=== PATIENT | female | born 1990 | race Caucasian/White ===

== ENCOUNTER 2016-05-17 19:44 | Emergency (ER) | payer OTHER ==
[~2016-05-17 19:44] MED LIST: ACETAMINOPHEN PO; ALBUTEROL17 GM INH; BENADRYL PO; BENTYL20 M1; CAVAN-FOLATE D1 EACH; ELIMITE60 GM TOP; FLEXERIL10 MG PO; IBUPROFEN PO; LORTAB 5-325 M1 EACH PO; NO MEDICATIONS; OMNICEF300 M1 PO; PREDNISONE PO; PROMETHAZINE HC25 MG PO; PROMETHAZINE12.5 MG; ROBAXIN500 MG PO; ROBITUSSIN NIG118 ML PO; VISTARIL PO; VOLTAREN75 MG PO; ZANTAC PO; ZOFRAN ODT4 MG
[2016-05-17 20:07] LABS: BASOPHIL% 0.4 % (0-2.5); EOSINOPHIL# 0.1 X10e3 (0-0.7); EOSINOPHIL% 2.3 % (0.0-7.0); HEMATOCRIT 42.2 % (35.0-45.0); HEMOGLOBIN 14.4 gm/dL (12.0-16.0); LYMPHOCYTE# 2.2 X10e3 (1.0-3.5); LYMPHOCYTE% 57.6 % (17.0-45.0); MEAN CELL VOLUME 94.3 FL (83-96); MEAN CORPUSCULAR HEMOGLOBIN 32.3 PG (28-34); MEAN CORPUSCULAR HGB CONC 34.2 g/dL (30-36); MEAN PLATELET VOLUME 8.5 FL (6.5-11.5); MONOCYTE# 0.3 X10e3 (0-1.0); MONOCYTE% 9.1 % (3.0-12.0); NEUTROPHIL# 1.2 X10e3 (1.5-7.1); NEUTROPHIL% 30.6 % (40-75); PLATELET COUNT 144 X10e3 (140-420); RED BLOOD COUNT 4.48 X10e (3.90-5.30); RED CELL DISTRIBUTION WIDTH 12.3 % (11.0-15.5); WHITE BLOOD COUNT 3.8 X10e3 (4.0-10.5)
[2016-05-17 20:08] LABS: DIFF IND NO
[2016-05-17 20:16] LABS: URINE SOURCE CLEAN CATCH
[2016-05-17 20:18] LABS: MICRO INDICATED? YES; URINE APPEARANCE CLEAR; URINE BILIRUBIN NEG (NEG); URINE BLOOD 3+ (NEG); URINE COLOR YELLOW; URINE GLUCOSE NEG (NORM); URINE KETONE NEG (NEG); URINE LEUKOCYTE ESTERASE NEG (NEG); URINE NITRATE NEG (NEG); URINE PH 5.5 (5-8); URINE PROTEIN NEG (NEG); URINE SPECIFIC GRAVITY 1.025 (1.003-1.035); URINE UROBILINOGEN 0.2 MG/DL (NORM)
[2016-05-17 20:20] LABS: URINE WBC 0-2 /[HPF] (0-5)
[2016-05-17 20:21] LABS: ALBUMIN SERUM 4.4 g/dL (3.5-5.0); BILIRUBIN, DIRECT 0.1 mg/dL (0.0-0.2); BILIRUBIN,INDIRECT 0.2 mg/dL (0.0-0.9); BILIRUBIN,TOTAL 0.3 mg/dL (0.2-2.0); CALCIUM SERUM 8.3 mg/dL (8.4-10.2); CREATININE SERUM 0.6 mg/dL (0.6-1.4); CULTURE INDICATED? NO; GLOM FILT RATE Estimated 127.6 mL/min (>60); POTASSIUM 3.3 mmol/L (3.5-5.1); PROTEIN TOTAL SERUM 7.5 g/dL (6.0-8.3); URINE BACTERIA NEG (NEG); URINE MUCUS PRESENT; URINE SQUAMOUS EPITHELIAL CELL OCCAS /[HPF]
== END 2016-05-17 21:50 | disposition home or self-care (01) ==
LOC: SED 19:44
PROVIDERS: Emergency Medicine
DX: K29.00 Acute gastritis without bleeding (principal); F31.9 Bipolar disorder, unspecified; F17.210 Nicotine dependence, cigarettes, uncomplicated; Z88.0 Allergy status to penicillin; Z88.5 Allergy status to narcotic agent
CPT/HCPCS: 36415; 80048; 80076; 81003; 82150; 83690; 84703; 85025; 96361; 96374; 96375; 99284; C9113; J2405; J2550

== ENCOUNTER 2016-06-13 23:58 | Emergency (ER) | payer OTHER ==
--- NOTE | ~2016-06-13 | CT2 ---
[facility]. [facility] A Service [facility] RADIOLOGY TEXT RESULTS PATIENT: ZOILA DOMINGUEZ LOCATION: SED : [birth year] UNIT #: [id number] AGE: [address]: FAVIAN GARCIA SEX: F ORDER DR: [id number] [address] [address] [id number] E MR#: [id number] Acc #: [id number] NAME: ZOILA DOMINGUEZ : 1990 SEX: F STUDY DATE/TIME: 06/14/2016 1:02 UNIT: SED ROOM: STUDY DESCRIPTION: CT Abd and Pelv W Cont Attending Physician: Favian Garcia Ordering Physician: Favian Garcia (Res) Primary Care Physician: Natividad Hare A.P.R.N. MEDICAL IMAGING REPORT This report is preliminary unless electronic signature is present. EXAM CT abdomen and pelvis with contrast DATE 06/14/2016 HISTORY 26-year-old female with right lower quadrant pain tonight. COMPARISON None. PROCEDURE 5 mm axial images from the lung bases through the lesser trochanters after intravenous contrast administration. Enteric contrast was not administered. Sagittal and coronal reformatted images were obtained. This CT exam was performed with one or more of the following radiation dose reduction techniques: Automatic exposure control, adjustment of mA and/or kV according to patient size, and iterative reconstruction. FINDINGS ABDOMEN FINDINGS: The appendix is normal. Limited evaluation of bowel due to lack of enteric contrast but no focal bowel inflammation is seen. The lung bases are clear. Heart size is within normal limits. The liver, gallbladder, spleen, pancreas, adrenals and kidneys are within normal limits. No free air, free fluid or pathologic adenopathy is identified. PELVIS FINDINGS: 2 left ovarian cysts are present, the dominant measuring up to 1.8 cm. Small amount of fluid is seen surrounding the right ovary with a right ovarian dominant follicle or cyst measuring only 7 mm. Urinary bladder, uterus and rectum are normal. [facility] A Service [facility] RADIOLOGY TEXT RESULTS PATIENT: ZOILA DOMINGUEZ LOCATION: SED : [birth year] UNIT #: [id number] AGE: [address]: FAVIAN GARCIA SEX: F ORDER DR: Osseous structures are within normal limits. IMPRESSION 1. 7 mm right ovarian dominant follicle or cyst is noted and there is some fluid surrounding the right ovary. The findings could represent changes of recent ovarian cyst rupture. 2. There are 2 left ovarian cysts, dominant measuring 1.9 cm. 3. The appendix is normal. 4. The remainder of the examination is within normal limits. Dictated by... Kia Schroeder M.D. THIS IS AN ELECTRONICALLY VERIFIED REPORT Kia Schroeder M.D. at 06/14/2016 9:[address] [facility]/jayro TD: 06/14/2016 02:38 JOB #: [id number] MEDICAL IMAGING REPORT Page 1 of 1
[2016-06-14 00:19] LABS: URINE SOURCE CLEAN CATCH
[2016-06-14 00:21] LABS: URINE APPEARANCE CLEAR; URINE BILIRUBIN NEG (NEG); URINE BLOOD TRACE-INTACT (NEG); URINE COLOR YELLOW; URINE GLUCOSE NEG (NORM); URINE KETONE NEG (NEG); URINE LEUKOCYTE ESTERASE TRACE (NEG); URINE NITRATE NEG (NEG); URINE PH 6.5 (5-8); URINE PROTEIN NEG (NEG); URINE SPECIFIC GRAVITY 1.025 (1.003-1.035); URINE UROBILINOGEN 0.2 MG/DL (NORM)
[2016-06-14 00:24] LABS: MICRO INDICATED? YES
[2016-06-14 00:28] LABS: CULTURE INDICATED? YES; URINE AMORPHOUS SEDIMENT AMORP URATES; URINE BACTERIA NEG (NEG); URINE MUCUS PRESENT; URINE SQUAMOUS EPITHELIAL CELL FEW /[HPF]; URINE WBC 25-50 /[HPF] (0-5)
[2016-06-14 00:45] LABS: BASOPHIL% 0.3 % (0-2.5); EOSINOPHIL# 0.1 X10e3 (0-0.7); EOSINOPHIL% 1.7 % (0.0-7.0); HEMATOCRIT 41.4 % (35.0-45.0); LYMPHOCYTE# 2.4 X10e3 (1.0-3.5); LYMPHOCYTE% 36.9 % (17.0-45.0); MEAN CELL VOLUME 95.2 FL (83-96); MEAN CORPUSCULAR HEMOGLOBIN 32.2 PG (28-34); MEAN CORPUSCULAR HGB CONC 33.8 g/dL (30-36); MEAN PLATELET VOLUME 8.5 FL (6.5-11.5); MONOCYTE# 0.5 X10e3 (0-1.0); MONOCYTE% 7.5 % (3.0-12.0); NEUTROPHIL# 3.5 X10e3 (1.5-7.1); NEUTROPHIL% 53.6 % (40-75); PLATELET COUNT 158 X10e3 (140-420); RED BLOOD COUNT 4.34 X10e (3.90-5.30); RED CELL DISTRIBUTION WIDTH 12.5 % (11.0-15.5); WHITE BLOOD COUNT 6.6 X10e3 (4.0-10.5)
[2016-06-14 00:50] LABS: DIFF IND NO
[2016-06-14 00:56] LABS: ALBUMIN SERUM 4.3 g/dL (3.5-5.0); BILIRUBIN, DIRECT 0.1 mg/dL (0.0-0.2); BILIRUBIN,INDIRECT 0.3 mg/dL (0.0-0.9); BILIRUBIN,TOTAL 0.4 mg/dL (0.2-2.0); BUN/CREATININE RATIO 21.66; CALCIUM SERUM 8.7 mg/dL (8.4-10.2); CREATININE SERUM 0.6 mg/dL (0.6-1.4); GLOM FILT RATE Estimated 127.6 mL/min (>60); POTASSIUM 3.6 mmol/L (3.5-5.1); PROTEIN TOTAL SERUM 7.4 g/dL (6.0-8.3)
[2016-06-16 08:18] LABS: CHLAMYDIA TRACH Not Detected (Not Detected); N GONOR Not Detected (Not Detected)
== END 2016-06-14 01:47 | disposition home or self-care (01) ==
LOC: SED 23:58
PROVIDERS: Nurse Practitioner
DX: N83.02 Follicular cyst of left ovary (principal); N83.01 Follicular cyst of right ovary; N73.9 Female pelvic inflammatory disease, unspecified; J45.909 Unspecified asthma, uncomplicated; F41.0 Panic disorder [episodic paroxysmal anxiety]; N80.9 Endometriosis, unspecified; F17.210 Nicotine dependence, cigarettes, uncomplicated; Z88.6 Allergy status to analgesic agent; Z90.89 Acquired absence of other organs; Z88.5 Allergy status to narcotic agent
CPT/HCPCS: 36415; 74177; 80048; 80076; 81003; 82150; 83690; 84703; 85025; 87086; 87210; 87491; 87591; 87808; 87905; 96374; 96375; 99284; J0696; J2405; Q9967

== ENCOUNTER 2016-07-11 10:45 | Emergency (ER) | payer OTHER ==
[2016-07-11 11:32] LABS: URINE SOURCE CLEAN CATCH
[2016-07-11 11:40] LABS: URINE APPEARANCE CLEAR; URINE BILIRUBIN NEG (NEG); URINE BLOOD 3+ (NEG); URINE COLOR YELLOW; URINE GLUCOSE NEG (NEG); URINE KETONE NEG (NEG); URINE LEUKOCYTE ESTERASE NEG (NEG); URINE NITRATE NEG (NEG); URINE PROTEIN NEG (NEG); URINE SPECIFIC GRAVITY 1.011 (1.003-1.035); URINE UROBILINOGEN 0.2 MG/DL (NEG)
[2016-07-11 11:43] LABS: CULTURE INDICATED? NO; URINE BACTERIA AUWI NEG (NEGATIVE); URINE SQUAMOUS EPITHELIAL CELL OCC /[HPF]
== END 2016-07-11 12:15 | disposition home or self-care (01) ==
LOC: CFTX 10:45 → CED 10:45 → CFTX 11:17
PROVIDERS: Nurse Practitioner
DX: R11.2 Nausea with vomiting, unspecified (principal); K21.9 Gastro-esophageal reflux disease without esophagitis; F17.210 Nicotine dependence, cigarettes, uncomplicated; Z88.0 Allergy status to penicillin; Z88.5 Allergy status to narcotic agent
CPT/HCPCS: 81003; 84703; 99283

== ENCOUNTER 2016-08-14 08:44 | Emergency (ER) | payer OTHER ==
[2016-08-15] MEDS ORDERED: BIRTH CONTROL PILLS (07:39)
== END 2016-08-14 11:30 | disposition left against medical advice (07) ==
LOC: CED 08:44
DX: Z53.21 Procedure and treatment not carried out due to patient leaving prior to being seen by health care provider (principal)

== ENCOUNTER 2016-08-15 07:24 | Emergency (ER) | payer OTHER ==
[2016-08-15] MEDS ORDERED: BIRTH CONTROL PILLS (07:39)
[2016-08-15 08:05] LABS: URINE SOURCE CLEAN CATCH
[2016-08-15 08:06] LABS: BASOPHIL% 0.3 % (0-2.5); HEMATOCRIT 43.3 % (35.0-45.0); LYMPHOCYTE# 0.8 X10e3 (1.0-3.5); LYMPHOCYTE% 12.6 % (17.0-45.0); MEAN CELL VOLUME 94.8 FL (83-96); MEAN CORPUSCULAR HEMOGLOBIN 32.8 PG (28-34); MEAN CORPUSCULAR HGB CONC 34.6 g/dL (30-36); MEAN PLATELET VOLUME 7.9 FL (6.5-11.5); MONOCYTE# 0.6 X10e3 (0-1.0); MONOCYTE% 9.2 % (3.0-12.0); NEUTROPHIL# 5.2 X10e3 (1.5-7.1); NEUTROPHIL% 77.9 % (40-75); PLATELET COUNT 126 X10e3 (140-420); RED BLOOD COUNT 4.56 X10e (3.90-5.30); RED CELL DISTRIBUTION WIDTH 12.1 % (11.0-15.5); WHITE BLOOD COUNT 6.7 X10e3 (4.0-10.5)
[2016-08-15 08:07] LABS: URINE APPEARANCE CLEAR; URINE BILIRUBIN NEG (NEG); URINE BLOOD 2+ (NEG); URINE COLOR YELLOW; URINE GLUCOSE NEG (NORM); URINE KETONE 1+ (NEG); URINE LEUKOCYTE ESTERASE 1+ (NEG); URINE NITRATE NEG (NEG); URINE PH 7.5 (5-8); URINE PROTEIN 1+ (NEG)
[2016-08-15 08:26] LABS: DIFF IND NO
[2016-08-15 08:28] LABS: MICRO INDICATED? YES
[2016-08-15 08:36] LABS: CULTURE INDICATED? YES; URINE BACTERIA 1+ (NEG); URINE MUCUS PRESENT; URINE SQUAMOUS EPITHELIAL CELL FEW /[HPF]; URINE WBC 25-50 /[HPF] (0-5)
[2016-08-15 08:46] LABS: ALBUMIN SERUM 4.2 g/dL (3.5-5.0); BILIRUBIN,TOTAL 0.7 mg/dL (0.2-2.0); BUN/CREATININE RATIO 15.71; CALCIUM SERUM 8.3 mg/dL (8.4-10.2); CREATININE SERUM 0.7 mg/dL (0.6-1.4); GLOM FILT RATE Estimated 121.3 mL/min (>60); POTASSIUM 3.2 mmol/L (3.5-5.1)
== END 2016-08-15 11:26 | disposition home or self-care (01) ==
LOC: SED 07:24
PROVIDERS: Emergency Medicine
DX: N30.00 Acute cystitis without hematuria (principal); J02.9 Acute pharyngitis, unspecified; R19.7 Diarrhea, unspecified; R11.2 Nausea with vomiting, unspecified; F17.210 Nicotine dependence, cigarettes, uncomplicated; Z88.0 Allergy status to penicillin
CPT/HCPCS: 36415; 80053; 81003; 84703; 85025; 87086; 87651; 96360; 99284

== ENCOUNTER 2016-09-04 20:05 | Emergency (ER) | payer OTHER ==
[~2016-09-04] VITALS: Ht 170.2 cm; Wt 47.2 kg
--- NOTE | ~2016-09-04 | CT2 ---
[facility] A Service of [facility] & [facility] RADIOLOGY TEXT RESULTS PATIENT: ZOILA DOMINGUEZ LOCATION: [facility] : [birth year] UNIT #: [id number] AGE: [address]: Raymundo Baum DO SEX: F ORDER DR: [id number] [facility] [address] [place], [place] [address] [id number] E MR#: [id number] Acc #: [id number] NAME: ZOILA DOMINGUEZ : 1990 SEX: F STUDY DATE/TIME: 09/05/2016 00:42 UNIT: [facility] ROOM: STUDY DESCRIPTION: CT Abd and Pelv W Cont Attending Physician: Raymundo Baum D.O. Ordering Physician: Raymundo Baum D.O. Primary Care Physician: Natividad Hare A.P.R.N. MEDICAL IMAGING REPORT This report is preliminary unless electronic signature is present EXAM Abdomen and pelvis CT 09/05/2016 00:42 INDICATION Right-side [id number] abdominal pain with cramping for 2 days. Nausea and vomiting as well. TECHNIQUE Axial images were obtained through the abdomen and pelvis following IV contrast administration. Multiplanar reformats were obtained. Comparison made with 06/14/2016. This CT examination was performed with one or more of the following radiation dose reduction techniques: automatic exposure control, adjustment of mA and/or kV according to patient size, and iterative reconstruction. FINDINGS ABDOMEN: Lung bases are clear. The gallbladder is normal. There is no biliary obstruction. Solid abdominal organs are normal. No free fluid or adenopathy. Unopacified GI tract is normal. PELVIS: Urinary bladder is normal. The appendix is normal. Remainder of the unopacified GI tract is normal as well. There are 2 left ovarian cysts, 1 measuring 2 cm and the other measuring 3.2 cm. These are larger than on the prior study. Solid pelvic organs are otherwise unremarkable. IMPRESSION 1. Normal unopacified GI tract, including the appendix. 2. Two left ovarian cysts, larger than on the CT of 06/14/2016. 3. Remainder of the abdomen and pelvis CT is normal. Dictated by... [facility]. [facility] A Service of [facility] & [facility] RADIOLOGY TEXT RESULTS PATIENT: ZOILA DOMINGUEZ LOCATION: [facility] : [birth year] UNIT #: [id number] AGE: [address]: Raymundo Baum DO SEX: F ORDER DR: Niles Yuen Jr., M.D. THIS IS AN ELECTRONICALLY VERIFIED REPORT Niles Yuen Jr., M.D. at 09/05/2016 9:10 PM [facility]/yaneth TD: 09/05/2016 10:48 JOB #: [id number] MEDICAL IMAGING REPORT Page 1 of 1 COPY
[~2016-09-04 20:05] MED LIST changes: +BIRTH CONTROL PILLS
[2016-09-04 22:45] LABS: URINE SOURCE CLEAN CATCH
[2016-09-04 22:55] LABS: BASOPHIL% 0.3 % (0-2.5); EOSINOPHIL# 0.1 X10e3 (0-0.7); EOSINOPHIL% 0.7 % (0.0-7.0); HEMOGLOBIN 14.8 gm/dL (12.0-16.0); LYMPHOCYTE# 2.1 X10e3 (1.0-3.5); LYMPHOCYTE% 28.3 % (17.0-45.0); MEAN CELL VOLUME 95.8 FL (83-96); MEAN CORPUSCULAR HEMOGLOBIN 31.6 PG (28-34); MEAN PLATELET VOLUME 9.2 FL (6.5-11.5); MONOCYTE# 0.7 X10e3 (0-1.0); MONOCYTE% 9.2 % (3.0-12.0); NEUTROPHIL# 4.5 X10e3 (1.5-7.1); NEUTROPHIL% 61.5 % (40-75); PLATELET COUNT 177 X10e3 (140-420); RED CELL DISTRIBUTION WIDTH 12.5 % (11.0-15.5); WHITE BLOOD COUNT 7.3 X10e3 (4.0-10.5)
[2016-09-04 23:00] LABS: DIFF IND NO
[2016-09-04 23:01] LABS: POC - CKMB <1.0 ng/mL (0.0-7.9); POC - TROPONIN <0.05 ng/mL (<=0.05)
[2016-09-04 23:13] LABS: ALBUMIN SERUM 4.8 g/dL (3.5-5.0); BILIRUBIN, DIRECT 0.1 mg/dL (0.0-0.2); BILIRUBIN,INDIRECT 0.9 mg/dL (0.0-0.9); BUN/CREATININE RATIO 23.33; CREATININE SERUM 0.6 mg/dL (0.6-1.4); GLOM FILT RATE Estimated 127.6 mL/min (>60); POTASSIUM 3.6 mmol/L (3.5-5.1); PROTEIN TOTAL SERUM 8.3 g/dL (6.0-8.3)
[2016-09-04 23:15] LABS: URINE APPEARANCE CLEAR; URINE BILIRUBIN NEG (NEG); URINE BLOOD NEG (NEG); URINE COLOR YELLOW; URINE GLUCOSE NORM (NEG); URINE KETONE NEG (NEG); URINE LEUKOCYTE ESTERASE 1+ (NEG); URINE NITRATE NEG (NEG); URINE PH 6.5 (5-8); URINE PROTEIN NEG (NEG); URINE UROBILINOGEN NORM (NEG)
[2016-09-04 23:16] LABS: CULTURE INDICATED? NO; URBCS1 AUWI 0-2 /[HPF] (0-2); URINE CRYSTALS CALCIUM OXALATE /[HPF]; UWBCS1 AUWI 0-2 (0-5)
== END 2016-09-05 01:30 | disposition home or self-care (01) ==
LOC: CED 20:05
PROVIDERS: Emergency Medicine
DX: N83.202 Unspecified ovarian cyst, left side (principal); R11.2 Nausea with vomiting, unspecified; F41.0 Panic disorder [episodic paroxysmal anxiety]; E03.9 Hypothyroidism, unspecified; F17.200 Nicotine dependence, unspecified, uncomplicated
CPT/HCPCS: 36415; 74177; 80048; 80076; 81003; 82553; 83690; 84484; 85025; 85379; 96361; 96374; 96375; 99284; J0500; J2405; Q9967

== ENCOUNTER 2016-09-12 11:28 | Emergency (ER) | payer OTHER ==
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
== END 2016-09-12 14:16 | disposition home or self-care (01) ==
LOC: SED 11:28
DX: S16.1XXA Strain of muscle, fascia and tendon at neck level, initial encounter (principal); R51 Headache; F17.210 Nicotine dependence, cigarettes, uncomplicated; Z88.0 Allergy status to penicillin; Z88.5 Allergy status to narcotic agent; X50.9XXA Other and unspecified overexertion or strenuous movements or postures, initial encounter
CPT/HCPCS: 70450; 72125; 84703; 99284